=== PATIENT | female | born 1975 | race Caucasian/White ===

== ENCOUNTER 2024-08-25 11:45 | Emergency (ER) | payer OTHER, SELFPAY ==
--- OUTSIDE RECORDS SUMMARY | 2024-08-25 11:48 | XMS_ITS | Clinical Summary ---
Author Organization [facility] Address [address] [place] [id number] Care Team Providers Care Television Producer Name Role Phone Antonia Sandy MD Primary Care Provider Allergies Active Allergy Reactions Criticality Noted Date Comments Amoxicillin Nausea Only 08/11/2003 Hydrocodone Vomiting 06/24/2023 Medications levonorgestrel intrauterine device (MIRENA) 20 mcg/24 hours (6 yrs) 52 mg IUD Placed around Oct 2019 at [facility] 1 Each 10/22/19 21 Active cephalexin (KEFLEX) 500 mg capsuleIndications :Skin cancer Take four tablets by mouth 30-60 minutes prior to scheduled dermatology surgery 4 Capsule 06/26/19 24 Active ondansetron (ZOFRAN ODT) 4 mg disintegrating tabletIndications: Vertigo Place 1 Tablet (4 mg) on the tongue every 8 hours if needed for Nausea/Vomiting . 30 Tablet 01/14/20 24 Active meclizine (ANTIVERT) 12.5 mg tabletIndications: Vertigo Take 1 Tablet (12.5 mg) by mouth 3 times daily if needed for Vertigo. Can increase to 25mg (2 pills at a time) if 1 pill is not effective 30 Tablet 1 01/14/20 24 Active ketoconazole 2% shampoo 2 % shampooIndications :Seborrheic dermatitis of scalp Use twice weekly for scaling around the scalp. 120 mL 08/20/19 25 Active ketoconazole 2% shampoo (NIZORAL) 2 % shampooIndications :Seborrheic dermatitis of scalp Use twice weekly for scaling around the scalp. 120 mL 2 05/18/19 24 025 Discontin ued(Reord er (E-cancel not sent)) Active Problems Problem Noted Date Diagnosed Date Alcohol use 01/14/2024 Overview (01/14/2024): 2-4 drinks 3-5 days per week. Wanting to cut down as usage has been increasing Basal cell carcinoma (BCC) of right lower leg Seborrheic dermatitis of scalp 10/21/2020 Pectus excavatum 01/19/2016 Varicose vein of leg 03/10/2014 Resolved Problems Problem Noted Date Diagnosed Date Resolved Date Skin cancer 06/26/2023 01/14/2024 Overview (08/22/2023): 06/20/23 right lower leg, nodular/infiltrative BCC, excised 08/15 Cony Saab MD Encounters Date Type Department Care Team Description 08/18/2024 Refill [facility] [address] [place] [address] Antonia Sandy MD Refill Request (Ketoconazole 2% shampoo) from Last 3 Months Immunizations Immunization Administration Dates Next Due AMB Influenza, IIV3 (Age >=3 years)(Flu Clinic Only) 01/01/2013 AMB Influenza, IIV4 PF (=>6 mos Flulaval,Fluzone Fluarix)(Flu Clinic Only) 01/17/2017 COVID-19 vaccine (Pfizer-Bio NTech 30mcg/0.3mL) 12YO+ BIVALENT PF, MDV 03/08/2022 COVID-19 vaccine (Pfizer-Bio NTech 30mcg/0.3mL) 12YO+ FELICITAS-SUCROSE PF, MDV 03/28/2021 COVID-19 vaccine (Pfizer-Bio NTech 30mcg/0.3mL) PF, MDV 08/24/2020,07/29/2020 Hepatitis A (Adult) 02/02/2017,06/30/2015 Hepatitis B (Adult) 07/15/2010 Hepatitis B (Peds) 07/15/2010 Influenza Virus, Unspecified 01/17/2017 Influenza, IIV3 (Age >=3 years) 11/22/2011,12/20,02/16/2010 Influenza, IIV4 05/18/2023,,01/08/2021,2020,01/01/2019,12/26/2017 MMR 07/03/1989 Td (Age >=7 Years) 12/05/1993 Tdap 01/16/2014,07/16/2010,08/23/2005 Family History Medical History Relation Name Comments Heart attack Father Cancer-breast Mother in remission Cancer-colon No Family History Cancer-ovarian No Family History Diabetes No Family History Relation Name Status Comments Father Mother Social History Tobacco Use Types Packs/Day Years Used Date Smoking Tobacco: Former Smokeless Tobacco: Never Tobacco Cessation:Counseling Given: Yes Alcohol Use Standard Drinks/Week Comments Yes 0 (1 standard drink = 0.6 oz pure alcohol) glass of wine 5 nights per week PHQ-2 Answer Date Recorded PHQ-2 TOTAL SCORE 0 05/18/2023 Social Connections Answer Date Recorded Do you often feel lonely or isolated from those around you? 0 06/24/2023 Financial Resource Strain Answer Date R ecorded Difficulty of Paying Living Expenses 3 06/24/2023 Difficulty of Paying Living Expenses Not on file 06/24/2023 Food Insecurity Answer Date Recorded Do you worry your food will run out before you are able to buy more? 1 06/24/2023 Transportation Needs Answer Date Record ed Does lack of transportation keep you from medica l appointments? 1 06/24/2023 Does lack of transportation keep you from work, meetings or getting things that you need? 1 06/24/2023 Housing Stability Answer Date Recorded What is your housing situation today? 1 06/24/2023 Utilities Answer Date Recorded Do you have trouble paying f or utilities (for example, heat, electricity, water, phone)? 1 06/24/2023 Comments No Sex and Gender Information Value Date Recorded Sex Assigned at Female 10/12/2020 11:24 AM CDT Legal Sex Female 8:16 AM COCOA PRESS OPERATOR Gender Identity Female 10/12/2020 11:24 AM CDT Sexual Orientation Straight 10/12/2020 11 :24 AM CDT Obstetrics History Last Filed Vital Signs Vital Sign Reading Time Taken Comments Blood Pressure 138/85 01/14/2024 11:18 AM COCOA PRESS OPERATOR Pulse 68 01/14/2024 11:18 AM COCOA PRESS OPERATOR Temperature 36.7 C (98 F) 06/24/2023 12:15 PM CDT Respiratory Rate 12 06/24/2023 12:15 PM CDT Oxygen Saturation 97% 01/14/2024 11:18 AM COCOA PRESS OPERATOR Inhaled Oxygen Concentration - - Weight 75.3 kg (166 lb) 01/14/2024 11:18 AM COCOA PRESS OPERATOR Height 176.3 cm (5' 9.41) 05/18/2023 10:56 AM C DT Body Mass Index 24.23 05/18/2023 10:56 AM CDT Plan of Treatment Health Maintenance Due Date Last Done Comments Hepatitis B series for 19+ (2 of 3 - 19+ 3-dose series) 08/12/2010 07/15/2010, 07/15/2010 COVID-19 vaccine series ( season) 2023 03/08/2022, 03/28/2021, 08/24/2020, Additional history exists Tetanus booster 01/17/2024 01/16/2014, 06/27, 08/23/2005, Additional history exists Pap test for age 21-65 04/04/2024 04/04/2019, 2019 BMI (ht and wt on same day) for age 18+ 05/17/2024 05/18/2023, 03/08/2022, 10/21/2020 Depression screening for age 12+ 05/17/2024 05/18/2023, 05/18/2023, 03/08/2022, Additional history exists Influenza Vaccine (Season Ended) 2024 05/18/2023, 12/20/2021, 01/08/2021, Additional history exists Mammogram for age 45-75 03/25/2025 03/25/19, 12/27/2022, 12/21/2021, Additional history exists Lipids for age 45-75 07/19/2026 07/19/2021 Colonoscopy through age 75 08/17/203108/16, 08/16/2021, 08/16/2021 Tdap Completed 01/16/2014, 06/27, 08/23/2005 HIV for age 15-65 Completed 03/08/2022 Hepatitis C screening for age 18-79 Completed 03/08/2022 Pneumococcal series for age 6-49 Aged Out No longer eligible based on patient's age to complete this topic Procedures Procedure Name Priority Date/Time Associated Diagnosis Comments XR MAMMO GREGORIA BILAT SCREEN IMPLANT Routine 03/25/2024 9:48 AM COCOA PRESS OPERATOR Visit for screening mammogram LC HIV-1/O/2, 4TH GENERATION Routine 03/08/2022 11:44 AM COCOA PRESS OPERATOR Encounter for screening for HIV LC HCV ANTIBODY RFX TO QUANT PCR Routine 03/08/2022 11:44 AM COCOA PRESS OPERATOR Need for hepatitis C screening test COLONOSCOPY DIAGNOSTIC Routine 08/16/2021 10:57 AM CDT Screen for colon cancer LIPID PANEL W REFLEX MEASURED LDL Routine 07/19/2021 11:13 AM CDT Screening for lipid disorders PEPPER CUTTER THIN PREP PAP SCREEN IMAGED Routine 04/04/2019 1:15 PM COCOA PRESS OPERATOR from Last 3 Months or Most Recently Relevant to Health Maintenance Results * XR MAMMO GREGORIA BILAT SCREEN IMPLANT (03/25/2024 9:48 AM COCOA PRESS OPERATOR) Anatomical Region Laterality Modality BREASTS, Breast Left, Breast Right Bilateral Mammography Impressions 03/25/2024 3:26 PM COCOA PRESS OPERATOR There is no radiographic evidence for malignancy. Recommend annual mammograms. MAMMOGRAM ASSESSMENT: ACR 2 Benign PATIENTS: You will also receive a letter with your examination results in an easy to read format. If you have questions about your results, please contact your referring provider. Narrative 03/25/2024 3:26 PM COCOA PRESS OPERATOR For Patients: As a result of the Century Cures Act, medical imaging exams and procedure reports are released immediately into your electronic medical record. You may view this report before your referring provider. If you have questions, please contact your health care provider. XR MAMMO GREGORIA BILAT SCREEN IMPLANT [[id number]] CLINICAL HISTORY: This is an asymptomatic 48 y.o. patient. INDICATION FOR EXAM: Mammogram Screening. TECHNIQUE: CC & MLO views were obtained. Implant displacement views were obtained. This study was evaluated with the assistance of Computer-Aided Detection. Breast Tomosynthesis was used in interpretation. COMPARISON FILMS: Yes 12/27/22 [facility] 12/21/21 [facility] FINDINGS: There are scattered areas of fibroglandular density. No suspicious masses or microcalcifications. There are breast implant(s) present.. Antonia Sandy MD MAMMO Final Resul t * LC HCV ANTIBODY RFX TO QUANT PCR (03/08/2022 11:44 AM COCOA PRESS OPERATOR) HCV Ab <0.1 0.0 - 0.9 s/co ratio 03/11/2022 12:07 AM [facility] ([facility]) Blood BLOOD SPECIMEN / Unknown Venipuncture / Unknown 03/08/2022 11:44 AM COCOA PRESS OPERATOR 03/08/2022 11:48 AM COCOA PRESS OPERATOR Narrative [facility] - 03/11/2022 12:07 AM COCOA PRESS OPERATOR Performed at: [address] [place] [address] [place] [id number] Director Export: Johny Benavidez MD, Phone: [phone] Kirstin PAZ [facility]ORAT[facility] Final Resu lt [facility] ([facility]) [facility] [place] [address], [place] * LC HIV-1/O/2, 4TH GENERATION (03/08/2022 11:44 AM COCOA PRESS OPERATOR) HIV Scr 4th Gen Non Reactive Non Reactive 03/11/2022 12:07 AM [facility] ([facility]) Comment: HIV Negative HIV-1/HIV-2 antibodies and HIV-1 p24 antigen were NOT detected. There is no laboratory evidence of HIV infection. Blood BLOOD SPECIMEN / Unknown Venipuncture / Unknown 03/08/2022 11:44 AM COCOA PRESS OPERATOR 03/08/2022 11:48 AM COCOA PRESS OPERATOR Narrative [facility] ([facility]) - 03/11/2022 12:07 AM COCOA PRESS OPERATOR Performed at: [facility] [employer] [address] [place], [place] [id number] Director Export: Johny Benavidez MD, Phone: [phone] us Kirstin Souza PA LABORATORY Final Resu lt [facility] ([facility]) [facility] [place] [address], * COLONOSCOPY (08/16/2021 11:13 AM CDT) 08/16/2021 11:1 3 AM CDT Narrative Transcriptions Claudio Beauchamp MD - 08/16/2021 12:11 PM CDT Patient Name: Bertha Keenan Procedure Date: 08/16/2021 Gender: Female Date of : 1975 Admit Type: Outpatient Procedure: Colonoscopy Proceduralist: Claudio Beauchamp MD , Madhavi Savage, HERNAN(Nurse) Referring MD: Kirstin Souza Indications/Pre-Op Diagnosis: Screening for colorectal malignant neoplasm, This is the patient's first colonoscopy Medications: Fentanyl 100 micrograms IV, Midazolam 4 mgIV, The level of sedation administered wasmoderate Procedure Description: The patient had risks, benefits and alternatives explained to andgave informed consent. The patient had a stable cardiopulmonary status and judged an adequate candidate for conscious sedation. The Colonoscope was passed through the anus and advanced to thececum, identified by appendiceal orifice and ileocecal valve. Thecolonoscopy was performed without difficulty. The patient tolerated the procedure well. The quality of the bowel preparation was good. The ileocecal valve, appendiceal orifice, and rectum were photographed. Complications: No immediate complications. Estimated Blood Loss & Specimen: Estimated blood loss: none. Specimen collected - None Findings: The perianal and digital rectal examinations were normal. The exam was otherwise without abnormality on direct and retroflexion views. Impressions/Post-Op Diagnosis: - The examination was otherwise normal on direct and retroflexionviews. - No specimens collected. Recommendation: - Patient has a contact number available for emergencies. The signsand symptoms of potential delayed complications were discussed with the patient. Return to normal activities tomorrow. Written discharge instructions were provided to the patient. - Resume previous diet. - Continue present medications. - Repeat colonoscopy in 10 years for screening purposes. Moderate Sedation: Moderate (conscious) sedation was administered by the endoscopy nurse and supervised by the endoscopist. The following parameters were monitored: oxygen saturation, heart rate, respiratory rate, blood pressure, adequacy of pulmonary ventilation and reponse to care. Please refer to the patient's medical record flowsheets and nursing notes for moderate sedation details. Total physician intraservice time was 20 minutes. Claudio Beauchamp MD 08/16/2021 12:11:44 PM This report has been signed electronically. Note Initiated On: 08/16/2021 11:13 AM Procedure Code(s): --- Professional --- 27596, Colonoscopy, flexible; diagnostic, including collection of specimen(s) bybrushing or washing, when performed (separateprocedure) Diagnosis Code(s): --- Professional --- Z12.11, Encounter for screening formalignant neoplasm of colon CPT copyright 2020 [employer]. All rights reserved. The codes documented in this report are preliminary and upon transportation dispatcher reviewmay be revised to meet current compliance requirements. Scope In: 11:50:15 AM Scope Withdrawal Time 0 hours 6 minutes 52 seconds Scope Out: 12:07:29 PM us Claudio Beauchamp MD PROCEDURE ORD Final Res ult * LIPID PANEL W REFLEX MEASURED LDL (07/19/2021 11:13 AM CDT) CHOLESTEROL,TOTAL 153 100 - 199 mg/dL 07/20/2021 12:53 AM CDT [facility] TRIGLYCERIDES 73 <150 mg/dL 07/20/2021 12:53 AM CDT [facility] HDL CHOLESTEROL 54 >40 mg/dL 12:53 AM CDT [facility] NON-HDL CHOLESTEROL 99 <145 mg/dl 07/20/2021 12:53 AM CDT [facility] CHOL/HDL RATIO 2.83 <4.50 07/20/2021 12:53 AM CDT [facility] LDL CHOLESTEROL 84 <=130 mg/dL 07/20/2021 12:53 AM CDT [facility] VLDL CHOLESTEROL 15 <=30 mg/dL 07/20/2021 12:53 AM CDT [facility] PROVIDER ORDERED STATUS RANDOM 07/20/2021 12:53 AM CDT [facility] Blood BLOOD SPECIMEN / Unknown Venipuncture / Unknown 07/19/2021 11:13 AM CDT 07/19/2021 11:13 AM CDT us Kirstin Souza PA CHEMISTRY Final Resu lt [facility] [address] [place] [address], [place] * PEPPER CUTTER THIN PREP PAP SCREEN IMAGED (04/04/2019 1:15 PM COCOA PRESS OPERATOR) Case Report Gynecologic Cytology Report Case: [id number] Authorizing Provider: Isha Corrales MD Collected: 04/04/2019 1315 Ordering [facility] Received: 04/08/2019 1159 First Screen: Vandana Cheema Specimen: PEPPER CUTTER ThinPrep Vial Screening, Cervical/Vaginal 04/16/2019 11:58 AM COCOA PRESS OPERATOR [facility] INTERPRETATION/ RESULT NEGATIVE FOR INTRAEPITHELIAL LESION OR MALIGNANCY (NIL) (none) 04/16/2019 11:58 AM COCOA PRESS OPERATOR [facility] at 1158 COCOA PRESS OPERATOR SPECIMEN ADEQUACY Satisfactory for evaluation Endocervical component present 04/16/2019 11:58 AM COCOA PRESS OPERATOR [facility] HPV REQUEST HPV and PAP 04/16/2019 11:58 AM COCOA PRESS OPERATOR [facility] Additional Information 04/16/2019 11:58 AM COCOA PRESS OPERATOR [facility] Comment: Interpreted at [facility] - [address], [place] [address] Automated Review Successful 04/16/2019 11:58 AM COCOA PRESS OPERATOR [facility] Comment:Specimen processed s uccessfully by automated dining car conductor device, ThinPrep Imaging System, [employer] ANCILLARY TESTING PEPPER CUTTER HPV Ordered, Please see separate report 04/16/2019 11:58 AM COCOA PRESS OPERATOR [facility] Note The pap test is a screening technique, not a diagnostic procedure. It is used primarily to screen for squamous cancers and precursor lesions. Published studies have shown that it is subject to both false negative and false positive results. The pap test should not be used as the sole means to diagnose or exclude pre-malignant and malignant lesions. 04/16/2019 11:58 AM COCOA PRESS OPERATOR [facility] Other (Cervical/Vagina l) 04/04/2019 1:15 PM COCOA PRESS OPERATOR 04/08/2019 11:59 AM COCOA PRESS OPERATOR us Isha Corrales MD PATHOLOGY/CYTOLOGY Final Result [facility] [address] [place] [address], [place] from Last 3 Months or Most Recently Relevant to Health Maintenance Insurance [facility] MALKA FRANCEJ CARLOS Foss [id number] [facility] Care Teams Television Producer Relationship Specialty Start Date End Date Antonia Sandy MD [address] [place] [address] PCP - General Family Practice 05/18/23
--- OUTSIDE RECORDS SUMMARY | 2024-08-25 11:48 | XMS_ITS | Clinical Summary ---
Author Organization [facility] Address [address] [facility] [address] Care Team Providers Care Rebar Fabricator Name Role Phone Kristina Lu PA-C Primary Care Provider [phone] Source Comments You are receiving this document as you are listed as the primary care provider,follow-up provider, or the patient has been referred to you for consultation.This is in compliance with the Medicare and[facility]ional Medical Cent[facility] EHR Incentive Program,which states Providers who transition their patient to another setting of careor provider of care or refers their patient to another provider of care shouldprovide summary care record for each transition of care or referral. [facility] All[facility] Active Allergy Reactions Criticality Noted Date Comments Amoxicillin Nausea 08/11/2003 Medications levonorgestrel (AKA MIRENA) 20 MCG/24HR IUDIndications:E ncounter for insertion of intrauterine contraceptive device 1 each by Intrauterine route See Admin Instructions. To be administered once every 5 years in clinic office. 1 each 0 01/09/20 15 Active naproxen (NAPROSYN) 500 MG tabletIndication s:Chest wall pain Take 1 Tab by mouth two times daily as needed. 30 Tab 1 01/19/20 16 Active Additional Information Patient not taking.Reported on 02/02/2017 tretinoin (RETIN-A) 0.1 % creamIndications :Wrinkles Apply topically daily at bedtime. 45 g 1 02/03/20 17 Active ketoconazole (NIZORAL) 2 % shampooIndicatio ns:Seborrheic dermatitis of scalp Apply topically twice a week 120 mL 2 02/03/20 17 Active Tretinoin, Facial Wrinkles, (TRETINOIN, EMOLLIENT,) 0.05 % cream Apply topically nightly. Apply to face. Dispense as written. 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 MRSA infection 10/11/2013 06/30/2015 AMA (advanced maternal age) multigravida 35+ 4 09/09/2014 Encounter for supervision of other normal 09/06/2013 09/09/2014 Overview (10/18/2016): Supervision of other normal Habitual aborter, currently 08/12/2013 09/09/2014 Supervision of high-risk pre gnancy of elderly multigravida 12/20/2010 09/06/2013 Polycystic ovaries 08/23/2006 4 Overview (10/18/2016): Polycystic Ovary Syndrome state, incidental 08/18/2003 1 03/02/2004 Overview (10/18/2016): LW Onset: [id number] ; Preg Not Initial Reason For Visit Migraine 08/18/2003 03/28/2004 Overview (10/18/2016): LW Onset: [id number] ; Migraine Without Aura Immunizations Immunization Administration Dates Next Due Flu Vac Preserv Free (3+yrs) 11/22/2011, 12/20/2010,02/16/2010,2006,01/11/2006,01/03/2005,12/09/2003 HepA Adult (19+ yrs) 02/02/2017,06/30/2015 Influenza IIV4 (Quadrivalent ) 0.5mL ([id number]) 01/11/2016,12/29/2014,12/02/2013 Influenza, Unspecified Formulation 01/17/2017 MMR 07/03/1989 TDAP (ADACEL) 08/23/2005 TDAP (BOOSTRIX) 01/16/2014 Td 12/05/1993 Family History Medical History Relation Name Comments Cancer Mother breast cancer, age 60 Cancer, Breast Mother No Known Family HIstory Problems Brother Heart Disease Maternal Grandfather No Known Family HIstory Problems Maternal Grandmother Cancer Paternal Grandfather lung Diabetes Paternal Grandfather Heart Disease Paternal Grandfather Cancer Paternal Grandmother lung Relation Name Status Comments Father Unknown Alive Mother Alive Brother Alive Maternal Grandfather Maternal Grandmother Alive Paternal Grandfather Paternal Grandmother Social History Tobacco Use Types Packs/Day Years Used Date Smoking Tobacco: Former Cigarettes 0.5 15 0 06/05/1989 - 06/05/2004 Smokeless Tobacco: Never Alcohol Use Standard Drinks/Week Comments Yes 2 (1 standard drink = 0.6 oz pur e alcohol) Comments No Sex and Gender Information Value Date Recorded Sex Assigned at Not on file Legal Sex Female 12:27 PM CDT Gender Identity Not on file Sexual Orientation Not on file Occupation Industry Job Start Date Job End Date Homemaker Not on file Not on file Not on file Last Filed Vital Signs Vital Sign Reading Time Taken Comments Blood Pressure 108/80 02/02/2017 1:14 PM SALES SUPERINTENDENT Pulse 72 02/02/2017 1:14 PM SALES SUPERINTENDENT Temperature 36.5 C (97.7 F) 12/29/2014 3:03 PM SALES SUPERINTENDENT Respiratory Rate 16 01/19/2016 1:02 PM SALES SUPERINTENDENT Oxygen Saturation 100% 06/18/2013 11:29 AM CDT Inhaled Oxygen Concentration - - Weight 69.1 kg (152 lb 4.8 oz) 02/02/2017 1:14 P M SALES SUPERINTENDENT Height 177.2 cm (5' 9.75) 02/02/2017 1:14 PM CS T Body Mass Index 22.01 02/02/2017 1:14 PM SALES SUPERINTENDENT Plan of Treatment Health Maintenance Due Date Last Done Comments Colon Cancer Screening Plan Due 1975 Hep C Screening (Preventive Services) 1975 HepB Vaccine (1) 11/29/1994 Cervical Cancer Screening 09/09/20172014, 09/09/2014, 09/04/2013, Additional history exists Adult Preventive Visit 02/02/2018 02/02/2017 Mammogram 09/19/2019 09/18/2017 Cholesterol 11/29/2020 06/30/2015, 09/11/2000 COVID-19 Vaccine (3 - 2023- season) 2023 08/24/2020, 07/29/2020 DTaP/Tdap/Td Vaccine (5 - Tdap) 01/17/2024 01/16/2014, 07/16/2010, 08/23/2005, Additional history exists Influenza Vaccine (Season Ended) 2024 03/19/2020, 01/01/2019, 12/26/2017, Additional history exists Zoster/Shingles Vaccine (1 of 2) 11/29/2025 HIV Screening (Preventive Services) Completed 09/04/2013, 06/15/2011, 12/20/2010, Additional history exists HepA Vaccine Aged Out 02/02/2017, 06/30/2015 No lo nger eligible based on patient's age to complete this topic Hib Vaccine Aged Out No longer eligi ble based on patient's age to complete this topic IPV (Polio) Vaccine Aged Out No longe r eligible based on patient's age to complete this topic MCV4 Vaccine Aged Out No longer eligi ble based on patient's age to complete this topic Meningococcal B Vaccine Aged Out No l onger eligible based on patient's age to complete this topic Pneumococcal Vaccine Aged Out No long er eligible based on patient's age to complete this topic Procedures Procedure Name Priority Date/Time Associated Diagnosis Comments MM MAMMOGRAM SCREENING BILAT W IMPLANTS W CAD Routine 09/18/2017 11:53 AM CDT Visit for screening mammogram LIPID PANEL & DIRECT LDL (IF NEEDED) Routine 06/30/2015 11:26 AM CDT Encounter for screening for lipoid disorders ANATOMICAL PATH LIQUID BASED Routine 09/09/2014 2:22 PM CDT HIV ANTIBODY Routine 09/04/2013 11:19 AM CDT Special screening examination for other specified viral diseases from Last 3 Months or Most Recently Relevant to Health Maintenance Results * MM Mammogram Screening Bilat W Implants W CAD (09/18/2017 11:53 AM CDT) Anatomical Region Laterality Modality Breast Bilateral Mammography Impressions 09/18/2017 11:59 AM CDT : ACR BI-RADS Category 2: Benign RECOMMENDATION: Follow Up Imaging in 12 months - Bilateral The results and recommendations of this examination will be communicated to the patient. Narrative 09/18/2017 11:59 AM CDT MM MAMMOGRAM SCREENING BILAT W IMPLANTS W CAD performed on 09/18/17 No comparisons were made when reading this study. Baseline. FINDINGS: Bilateral screening mammogram was performed with the assistance of Computer-Aided Detection. The breasts are heterogeneously dense, which may obscure small masses. There are implants present. There is no radiographic evidence of malignancy. Kristina Lu PA-C RAD KEN Final Result * Lipid Panel and Direct LDL(If Needed) (06/30/2015 11:26 AM CDT) Cholesterol 170 0 - 199 mg/dL HP CONVERSION Triglycerides 74 4 - 149 mg/dL HP CONVERSION HDL Cholesterol 52 >39 mg/dL HP CONVERSION Cholesterol/HDL Ratio Screen 3.3 HP CONVERSION LDL Calculated 103 19 - 130 mg/dL HP CONVERSION Hours Fasting 12.0 HP CONVERSION 06/30/2015 11:2 6 AM CDT 06/30/2015 2:56 PM CDT Narrative HP CONVERSION - 06/30/2015 3:36 PM CDT Performed at [facility], [address] [place] [address] CLIA number [id number] Kristina Lu PA-C LAB_1 Final Result HP CONVERSION * Pap Smear (09/09/2014 2:22 PM CDT) 09/09/2014 2:22 PM CDT Narrative HP CONVERSION - 09/15/2014 12:54 PM CDT Performed at [address] [address] FINAL GYNECOLOGICAL CYTOLOGY REPORT Pathology #: [id number] Date Obtained: 09/09/2014 Date Received: 09/10/2014 INTERPRETATION/RESULTS: Negative for Intraepithelial Lesion or Malignancy. SPECIMEN ADEQUACY: Satisfactory for Evaluation. No endocervical cells/transformation zone component present. Verified on 09/15/2014 by MORTEZA WEBER(ASCP) (electronic signature) CLINICAL NOTES: Abnormal bleeding: No, LMP: 08/21/14, Menstrual status: None Apply, Current form of therapy: None apply LIQUID BASED PAP SMEAR SPECIMEN TYPE: ROUTINE CERVICAL PAP TEST PLEASE NOTE: The pap smear is a screening test designed to aid in the detection of cervical cancer and its precursor lesions. It is not a diagnostic procedure and should not be used as the sole means of detecting cervical cancer. Both false-positive and false-negative reports may occur. End of Report Transcriptions 04/06/2016 5:27 AM CSTNotes Recorded by Sheri Saldivar RN on 09/22/2014 at 3:56 PMJaja Stone,I am writing to let you know that your PAP and HPV result is negative. This means that your test result was normal. No cancer or precancerous cells were seen.Based on current cervical cancer screening recommendations, your next PAP and HPV should be in 3 years. Continue to schedule your annual preventive exams for your overall health.If you have questions about cervical cancer screening or your test results, callCervical Cancer Screening and Management [phone],Sheri Saldivar RN on behalf ofDr. Kalee De La Garza, Medical DirectorM Health [facility] Cervical Cancer Screening and Management us Alycia Gooden SHIPPING POINT INSPECTOR, STRETCH BOX TENDER LAB_1 Fi nal Result HP CONVERSION * HIV ANTIBODY (09/04/2013 11:19 AM CDT) HIV 1/HIV 2 Non-React Non-Reacti ve HP CONVERSION 09/04/2013 11:1 9 AM CDT 09/04/2013 3:48 PM CDT Narrative Transcriptions 04/06/2016 6:03 PM CSTNotes Recorded by FRANCO Garza on 09/05/2013 at 9:11 PMsend labs to L/d. Pt was notified per My chart us Alycia Gooden SHIPPING POINT INSPECTOR, STRETCH BOX TENDER LAB_1 Fi nal Result HP CONVERSION from Last 3 Months or Most Recently Relevant to Health Maintenance Additional Health Concerns Infection Onset Date Last Indicated MRSA 10/04/2015 10/04/2015 Insurance [facility] Care Teams Rebar Fabricator Relationship Specialty Start Date End Date Kristina Lu, PACarlC [address] [place] [address] PCP - General 06/21/15
[2024-08-25 11:49] VITALS: BP 166/101; PULSE 76; RESP 16; TEMP 36.6; O2SAT 100; BMI 23.5
--- NOTE | 2024-08-25 12:14 | ED_ITS ---
HPI - General Adult General Chief complaint: Chest Pain Stated complaint: Chest, L arm pain Time Seen by Provider: 08/25/24 11:49 History of Present Illness HPI narrative: This 48-year-old female comes in reporting some rather sudden onset of discomfort and pain that kind of started in her left upper back and left side of her neck and also radiated around to her left upper chest and down her left arm into her hand. She states that she has had some neck discomfort on various occasions but has not had symptoms radiating down to her hand like this. She states that the tingling sensation in her hand is occupying her index, middle, and ring fingers primarily. She did not have any nausea, vomiting, shortness of breath, diaphoresis. She exercises every day without any discomforts. When this pain initially started she did feel lightheaded for a brief time. She states that she has had some symptoms in her left axillary region in the past that she attributes to breast implants. Related Data Previous Rx's ?Medication ?Instructions ?Recorded methylprednisolone 4 mg tablets in See Rx Instructions PO .COMPLEX 08/25/24 a dose pack (Medrol (Kory)) #21 ea Allergies Allergy/AdvReac Type Severity Reaction Status Date / Time amoxicillin Allergy Unknown Verified 08/25/24 11:52 Review of Systems Status of ROS: Reports: 10 or more systems reviewed and unremarkable except as noted in History and below Narrative: Constitutional: No fevers, no weight gain or loss. Eyes: No discharge. No vision changes. HENT: No congestion, no sore throat, no ear pain. Cardiovascular: No palpitations. Respiratory: No shortness of breath, no wheezes, no cough. Gastrointestinal: No abdominal pain, no vomiting, no diarrhea. Genitourinary: No dysuria, no hematuria. Musculoskeletal: Normal range of motion. Skin: No rashes, no pruritis. Neurological: No dizziness, weakness, speech change. Endo/Heme/Allergies: No bruising or bleeding. No polydipsia. Pysch: no suicidality, no anxiety, no insomnia. All other systems reviewed and are negative. PFSH PFSH Social History Smoking Status: Former smoker How often do you have a drink containing alcohol: 4 or more times a week How many standard drinks containing alcohol do you have on a typical day: 3 or 4 AUDIT-C Alcohol total score: 5 Non-prescribed substance use: denies use Exam Narrative: Exam Narrative: Constitutional: Well-developed, well-nourished, no acute distress. HEENT: Normocephalic, atraumatic. Neck: Normal range of motion. Nontender. Supple. Heart: Regular. No murmurs. Normal rate. Intact distal pulses. Lungs: Clear to auscultation. No chest discomfort. No wheezes, rhonchi, or rales. Abdomen: Normal bowel sounds. Nontender. No rebound tenderness. Genitalia: Deferred. Back: No midline tenderness. Normal range of motion. Extremities: Normal range of motion. No injury. Skin: Intact. No rash. Warm. No erythema or pallor. Neurologic: No altered sensation. No weakness. Alert and oriented. Tinel's sign and Phalen's test are negative. Spurling's test is also negative. Psychiatric: No suicidality. No anxiety or depression. No insomnia. Nursing notes and vitals signs are reviewed. Const: Vital Signs, click to edit/add: Vital Signs - 24 hr 08/25/24 11:49 Temperature 97.9 F Pulse Rate [Pulse Oximeter] 76 Respiratory Rate 16 Blood Pressure [Ri ght Upper Arm] 166/101 H Pulse Oximetry 100 Oxygen Delivery Me thod Room Air Course Vital Signs Vital signs: Initial Vital Signs Temperature 97.9 F 08/25/24 11:49 Temperature Source Temporal Artery Scan 08/25/24 11:49 Pulse Rate 76 08/25/24 11:49 Respiratory Rate 16 08/25/24 11:49 Blood Pressure 166/101 H 08/25/24 11:49 Blood Pressure Mean 122 H 08/25/24 11:49 Blood Pressure Position Sitting 08/25/24 11:49 Pulse Oximetry 100 08/25/24 11:49 Oxygen Delivery Method Room Air 08/25/24 11:49 Vital Signs Temperature 97.9 F 08/25/24 11:49 Pulse Rate 76 08/25/24 11:49 Respiratory Rate 16 08/25/24 11:49 Blood Pressure 166/101 H 08/25/24 11:49 Pulse Oximetry 100 08/25/24 11:49 Oxygen Delivery Method Room Air 08/25/24 11:49 Temperature 97.9 F 08/25/24 11:49 Pulse Rate 76 08/25/24 11:49 Respiratory Rate 16 08/25/24 11:49 Blood Pressure 166/101 H 08/25/24 11:49 Pulse Oximetry 100 08/25/24 11:49 Oxygen Delivery Method Room Air 08/25/24 11:49 Medical Decision Making MDM Narrative Medical decision making narrative: This patient comes in reporting some back pain initially that also spread into her left axilla and left chest area along with left side of the neck and down into her left arm. She does report some anxiety symptoms related to this. EKG is obtained and shows normal sinus rhythm and no sign of any other abnormality. Lab results all sore obtained and her troponin returns at 0. Other lab results are also very reassuring. Bedside ultrasound shows normal findings when evalua ting both her lungs and her heart. The patient is reassured with these results. She did receive an oral dose of Ativan 0.5 mg. She is okay to be discharged home. It seems like her symptoms are more likely related to some nervous system component. She did have breast implants and states that she does have recurrent symptoms in her left axillary region and she is planning to go back to the plas tic surgeon in this regard. I did provide a prescription for Medrol Dosepak. Lab Data Labs: Lab Results 08/25/24 08/25/24 Range/Units 12:14 12:35 WBC 4.68 (4.50-11.00) K/uL RBC 4.60 (4.00-5.20) m/uL Hgb 13.7 (12.0-16.0) gm/dL Hct 40.5 (33.0-51.0) % MCV 88 (80-100) fL MCH 30 (26-34) pg MCHC 34 (32-36) gm/dL RDW Coeff of Feliciano 12.2 (11.5-15.5) % Plt Count 161 (140-440) K/uL Neut % (Auto) 65.8 (42.0-72.0) % Lymph % (Auto) 23.7 (20-44) % [place] % (Auto) 9.0 (0.0-11.0) % Eos % (Auto) 1.1 (0.0-7.0) % Baso % (Auto) 0.4 (0.0-3.0) % Neut # (Auto) 3.08 (1.7-7.0) K/uL Lymph # (Auto) 1.11 (0.90-2.90) K/uL [place] # (Auto) 0.40 (0.00-0.90) K/UL Eos # (Auto) 0.05 (0.00-0.50) K/uL Baso # (Auto) 0.02 (0.00-0.30) K/uL Abs Immat Gran (auto) 0.00 (0.00-0.30) K/uL Imm/Tot Granulo (auto) 0.0 % Sodium 134 L (135-149) mmol/L Potassium 4.0 (3.6-5.1) mmol/L Chloride 105 (96-114) mmol/L Carbon Dioxide 21 (20-32) mmol/L Anion Gap 8 (7-15) mEq/L BUN 15 (5-24) mg/dL Creatinine 0.7 (0.5-1.5) mg/dL Estimated Creat Clear 106.28 Estimated GFR 107 ml/min Glucose 105 (60-115) mg/dL Calcium 9.5 (8.4-10.6) mg/dL POC Troponin I 0.00 L (0.01-0.04) ng/ml ECG Data Attestation: I personally reviewed and interpreted this ECG as follows: Interpretation: Normal sinus rhythm. Rate is 67 beats per minute. There are no ST or T-wave abnormalities. Discharge Plan Discharge Clinical Impression: Cervical radiculopathy Patient Disposition: Home w/ Parent or Adult Condition: Stable Additional Instructions: Take medication as prescribed. Follow up with MD return if worsening. Prescriptions: New methylprednisolone [Medrol (Kory)] 4 mg tablets,dose pack See Rx Instructions .ROUTE .COMPLEX Qty: 21 0RF Rx Instructions: orally per package directions Follow Up/Referrals: Kirstin Souza PA [Referring, Family Practice] Stand Alone Forms: MyHealth Info Instructions Procedures Ultrasound Cardiac exam #1: Anatomical areas examined: parasternal long and parasternal short Indications: chest pain Exam type: limited transthoracic echocardiogram Impression: negative exam
[2024-08-25 12:51] LABS: Basophils Absolute Auto 0.02 K/uL (0.00-0.30); Basophils Percent Auto 0.4 % (0.0-3.0); Eosinophils Absolute Auto 0.05 K/uL (0.00-0.50); Eosinophils Percent Auto 1.1 % (0.0-7.0); Hematocrit 40.5 % (33.0-51.0); Hemoglobin* 13.7 gm/dL (12.0-16.0); Lymphocytes Absolute Auto 1.11 K/uL (0.90-2.90); Lymphocytes Percent Auto 23.7 % (20-44); Mean Corpuscular HGB Conc 34 gm/dL (32-36); Mean Corpuscular Hemoglobin 30 pg (26-34); Mean Corpuscular Volume 88 fL (80-100); Neutrophils Absolute Auto 3.08 K/uL (1.7-7.0); Neutrophils Percent Auto 65.8 % (42.0-72.0); Platelet Count* 161 K/uL (140-440); RDW Coefficient of Variation % 12.2 % (11.5-15.5); White Blood Count* 4.68 K/uL (4.50-11.00)
[2024-08-25 13:07] LABS: Chloride* 105 mmol/L (96-114); Sodium* 134 mmol/L (135-149)
[2024-08-25 13:10] LABS: Anion Gap 8 mEq/L (7-15); Blood Urea Nitrogen* 15 mg/dL (5-24); Carbon Dioxide* 21 mmol/L (20-32); Creatinine* 0.7 mg/dL (0.5-1.5); Est. Creatinine Clearance* 106.28; Estimated Glomerular Filt Rate 107 ml/min; Slide Review Reflex No
[2024-08-25 13:11] LABS: Calcium* 9.5 mg/dL (8.4-10.6); Glucose* 105 mg/dL (60-115)
[2024-08-25] MEDS: LORazepam 0.5 MG TABLET PO (13:36)
== END 2024-08-25 13:40 | disposition home or self-care (01) ==
PROVIDERS: Emergency Provider Emergency Medicine Emergency Medical Services; PCP Family Medicine
DX: M54.12 Radiculopathy, cervical region (principal); M79.602 Pain in left arm
CPT/HCPCS: 36415; 80048; 84484; 85025; 93005; 99284; A9270